=== PATIENT | female | born 1950 | race Caucasian/White ===

== ENCOUNTER → 2018-05-07 | Outpatient (CLI) | payer MEDICARE ==
[~2018-05-07] MED LIST: ASPIR 8181 MG PO; GLIPIZIDE XL10 MG PO; LIPITOR40 MG PO; LISINOPRIL10 MG PO; METFORMIN HCL500 MG PO; NABUMETONE500 MG PO; NORCO 7.5-3251 EACH PO; PROBIOTIC COMP1 EACH PO; VITAMIN D32000 UNI1 PO
--- NOTE | 2018-05-07 09:41 | Diagnostic Imaging Report ---
PROCEDURE:US LIVER COMPARISON:None. INDICATIONS:RUQ LIPOMA PAIN TECHNIQUE: Spicer-scale and color doppler transverse and longitudinal images of the right upper quadrant of the abdomen were obtained. FINDINGS: Liver: 13.1 cm in length and the right midclavicular line. Normal parenchymal echogenicity without focal mass or intrahepatic biliary ductal dilatation. Main portal vein: 0.9 cm in caliber. Hepatopedal flow. Gallbladder: Normal in sonographic appearance without echogenic sludge, shadowing calculus, wall thickening, or pericholecystic fluid. Common Bile Duct: 0.3 cm in caliber. Sonographic Alvarez's sign: Reported as negative. Right kidney: 9.5 cm. Normal renal cortical echogenicity. No solid masses or hydronephrosis. Pancreas: The visualized portions are unremarkable. Inferior vena cava: Patent Aorta: Non-aneurysmal Ascites: None in the right upper quadrant of the abdomen. CONCLUSION: Unremarkable right upper quadrant ultrasound. Dictated by: John Dsos M.D. on 05/07/2018 at 9:51 Electronically approved by: John Doss M.D. on 05/07/2018 at 9:51
--- NOTE | 2018-05-07 09:44 | Diagnostic Imaging Report ---
PROCEDURE: X-RAY CHEST, TWO VIEWS COMPARISON: Report for chest radiograph from May 2016 is available for review. No images are available.. INDICATIONS: PREOPERATIVE CHEST XRAY FOR ORAL SURGERY FINDINGS: The lungs are well-inflated. Mild biapical pleural-parenchymal scar. No airspace consolidation, pleural effusion, or pneumothorax. Cardiomediastinal contour and pulmonary vasculature are within normal limits. Age indeterminate moderate anterior compression deformity of a midthoracic vertebral body seen on the lateral radiograph. Otherwise intact regional skeletal structures. Degenerative disc changes of the partially visualized lumbar spine. CONCLUSION: No acute cardiopulmonary abnormality. Age-indeterminate moderate anterior compression deformity of a midthoracic vertebral body. Point tenderness over this region of the spine would suggest relative acuity. Dictated by: John Doss M.D. on 05/07/2018 at 9:54 Electronically approved by: John Doss M.D. on 05/07/2018 at 9:54
== END ==
LOC: EDBD 09:00 → US 09:04
PROVIDERS: ATTEND Internal Medicine
DX: K76.9 Liver disease, unspecified (principal); R19.01 Right upper quadrant abdominal swelling, mass and lump
CPT/HCPCS: 71046; 76705

== ENCOUNTER → 2020-01-31 | Outpatient (RCR) | payer MEDICARE | LOC: PT 01-10 08:46 | PROVIDERS: ATTEND Specialist | DX: M47.22 Other spondylosis with radiculopathy, cervical region (principal); M62.81 Muscle weakness (generalized) ==

== ENCOUNTER 2020-02-23 08:50 | Outpatient (RCR) | payer MEDICARE ==
[2020-05-02] MEDS ORDERED: JARDIANCE25 MG (12:38)
[2020-05-02] MEDS ORDERED: B12 (12:39)
[2020-05-02] MEDS ORDERED: MELOXICAM7.5 MG PO (12:39)
== END 2020-03-01 ==
LOC: PT 08:50
PROVIDERS: ATTEND Specialist
DX: M47.22 Other spondylosis with radiculopathy, cervical region (principal); M62.81 Muscle weakness (generalized)
CPT/HCPCS: 97139

== ENCOUNTER → 2020-05-05 | Day surgery (SDC) | payer MEDICARE ==
[2020-05-02 13:39] LABS: BASOPHILS % 0.4 % (0.0-1.0); EOSINOPHILS # (AUTO) 0.1 (0.0-0.4); HEMATOCRIT 42.9 % (34.2-44.1); HEMOGLOBIN 13.2 g/dL (12.0-16.0); LYMPHOCYTES # (AUTO) 1.1 (1.0-3.2); LYMPHOCYTES % 16.7 % (18.0-39.1); MEAN CORPUSCULAR HEMOGLOBIN 22.1 pg (28-32); MEAN CORPUSCULAR HGB CONC 30.8 g/dL (31-35); MEAN CORPUSCULAR VOLUME 71.9 fL (81-99); MONOCYTES # (AUTO) 0.4 (0.2-0.8); NEUTROPHILS # (AUTO) 5.1 (2.1-6.9); NEUTROPHILS % 74.8 % (38.7-80.0); PLATELET COUNT 204 x10e3/uL (140-360); RED BLOOD COUNT 5.97 x10e6/uL (3.6-5.1)
[~2020-05-05] MED LIST changes: +B12; +FENTANYL CITRATE/PF 100MCG/2 ML INJ ONE; +HYOSCYAMINE 0.125 MG TAB ONE; +JARDIANCE25 MG; +LIDOCAINE HCL 2% LOCAL INJ 5 ML SDV VIAL INJ ONE; +MELOXICAM7.5 MG PO; +MIDAZOLAM HCL 2 MG/2 ML VIAL ONE; +PROPOFOL IV EMULSION 10 MG/ML 20 ML VIAL ONE
[2020-05-05 18:00] VITALS: BP 111/51
== END | disposition home or self-care (01) ==
LOC: OR 12:43
PROVIDERS: ATTEND Internal Medicine Gastroenterology
DX: Z09 Encounter for follow-up examination after completed treatment for conditions other than malignant neoplasm (principal); K63.5 Polyp of colon; E11.9 Type 2 diabetes mellitus without complications; I10 Essential (primary) hypertension; Z01.810 Encounter for preprocedural cardiovascular examination; Z01.812 Encounter for preprocedural laboratory examination; Z20.828 Contact with and (suspected) exposure to other viral communicable diseases; Z79.82 Long term (current) use of aspirin; Z79.84 Long term (current) use of oral hypoglycemic drugs; Z80.0 Family history of malignant neoplasm of digestive organs
CPT/HCPCS: 36415 ×2; 45385; 82948; 85025; 88305; 93005; J2001; J2250; J2704; J3010; U0002; 45378

== ENCOUNTER 2020-06-28 10:00 | Outpatient (RCR) | payer MEDICARE ==
[~2020-06-28 10:00] MED LIST changes: -FENTANYL CITRATE/PF 100MCG/2 ML INJ ONE; -HYOSCYAMINE 0.125 MG TAB ONE; -LIDOCAINE HCL 2% LOCAL INJ 5 ML SDV VIAL INJ ONE; -MIDAZOLAM HCL 2 MG/2 ML VIAL ONE; -PROPOFOL IV EMULSION 10 MG/ML 20 ML VIAL ONE
== END 2020-07-02 ==
LOC: OT 10:00
PROVIDERS: ATTEND Plastic Surgery
DX: M18.11 Unilateral primary osteoarthritis of first carpometacarpal joint, right hand (principal); M79.641 Pain in right hand

== ENCOUNTER 2021-04-03 09:06 | Outpatient (RCR) | payer MEDICARE | END 2021-05-01 | LOC: OT 09:06 | PROVIDERS: ATTEND Plastic Surgery | DX: M18.12 Unilateral primary osteoarthritis of first carpometacarpal joint, left hand (principal); M25.542 Pain in joints of left hand ==

== ENCOUNTER 2021-07-06 11:04 | Inpatient (IN) | payer MEDICARE ==
[~2021-07-06] VITALS: Ht 154.9 cm; Wt 54.0 kg
[2021-07-06] MEDS ORDERED: SODIUM CHLORIDE 0.9% 1000ML 1,000 ML IV STA ×4 (11:39→20:37)
[2021-07-06] MEDS ORDERED: ONDANSETRON HCL INJ 2MG/ML 2ML 2 MG/ML VIAL IV STA (11:39)
[2021-07-06 11:58] LABS: BASOPHILS # (AUTO) 0.1 (0.0-0.1); BASOPHILS % 0.3 % (0.0-1.0); HEMATOCRIT 54.3 % (34.2-44.1); HEMOGLOBIN 16.4 g/dL (12.0-16.0); LYMPHOCYTES # (AUTO) 1.1 (1.0-3.2); LYMPHOCYTES % 4.7 % (18.0-39.1); MEAN CORPUSCULAR HEMOGLOBIN 23.2 pg (28-32); MEAN CORPUSCULAR HGB CONC 30.2 g/dL (31-35); MEAN CORPUSCULAR VOLUME 76.9 fL (81-99); MONOCYTES # (AUTO) 1.9 (0.2-0.8); MONOCYTES % 8.2 % (4.4-11.3); NEUTROPHILS # (AUTO) 19.4 (2.1-6.9); NEUTROPHILS % 85.8 % (38.7-80.0); PLATELET COUNT 284 x10e3/uL (140-360); RED CELL DISTRIBUTION WIDTH 17.6 % (11.7-14.4)
[2021-07-06 12:04] LABS: RED BLOOD COUNT 7.06 x10e6/uL (3.6-5.1)
[2021-07-06 12:09] LABS: INR 0.86; PROTHROMBIN TIME 12.3 seconds (11.9-14.5)
[2021-07-06 12:10] LABS: PARTIAL THROMBOPLASTIN TIME 22.9 seconds (23.8-35.5)
[2021-07-06 12:17] LABS: ALBUMIN 4.1 g/dL (3.5-5.0); ALBUMIN/GLOBULIN RATIO 1.3 (0.8-2.0); ANION GAP 19.7 mmol/L (8-16); CALCIUM 9.7 mg/dL (8.4-10.2); CREATININE, SERUM 1.27 mg/dL (0.57-1.11); POTASSIUM 4.7 mmol/L (3.5-5.1)
[2021-07-06] MEDS ORDERED: PIPERACILLIN/TAZOBACTAM 3.375 GM in SODIUM CHLORIDE 0.9% 50ML 50 ML IV STA (12:28)
[2021-07-06] MEDS ORDERED: IOPAMIDOL 370 MG/ML 200 ML INFUS..BTL INJ ONE (14:13)
[2021-07-06] MEDS ORDERED: SODIUM CHLORIDE 0.9% 100 ML ONE (14:13)
[2021-07-06] MEDS: METRONIDAZOLE 500MG/NS 100ML 100 ML IV SCH ×2 (15:02→20:45)
[2021-07-06 15:17] LABS: CLARITY,URINE CLEAR (CLEAR); COLOR,URINE YELLOW (YELLOW); KETONES,URINE NEGATIVE (NEGATIVE); LEUKOCYTE ESTERASE ,URINE NEGATIVE (NEGATIVE); NITRITE,URINE NEGATIVE (NEGATIVE); PROTEIN,URINE DIPSTICK NEGATIVE (NEGATIVE); URINE UROBILINOGEN 0.2 mg/dL (0.2 - 1)
[2021-07-06 15:46] LABS: BACTERIA,URINE FEW /HPF; EPITHELIAL CELLS,URINE MANY /LPF; RENAL EPITHELIAL CELLS,URINE FEW; TRANSITIONAL EPI CELLS,URINE FEW
[2021-07-06] MEDS ORDERED: Morphine 2mg Syringe 2 MG/ML SYR IV PRN (16:00)
[2021-07-06] MEDS ORDERED: ONDANSETRON HCL INJ 2MG/ML 2ML 2 MG/ML VIAL IV PRN (16:00)
[2021-07-06] MEDS ORDERED: SODIUM CHLORIDE 0.9% 1000ML 1,000 ML IV SCH (16:00)
[2021-07-06 18:10] VITALS: BP 128/65
[2021-07-06 18:27] VITALS: BP 128/65
[2021-07-06] MEDS ORDERED: DEXTROSE 50% SYRINGE 50 ML IV PRN (18:45)
[2021-07-06 20:00] VITALS: BP 121/66
[2021-07-06 20:31] VITALS: BP 121/66
[2021-07-06] MEDS: PIPERACILLIN/TAZOBACTAM 3.375 GM in SODIUM CHLORIDE 0.9% 50ML 50 ML IV SCH (20:44)
[2021-07-06] MEDS: INSULIN GLARGINE 100 UNITS/ML VIAL SQ SCH (21:00)
[2021-07-06] MEDS: INSULIN LISPRO 100 UNIT/1 ML 3ML VIAL SQ SCH (21:00)
[2021-07-07] VITALS (8 sets, daily range): BP systolic 113–130; BP diastolic 65–76
[2021-07-07] MEDS: PIPERACILLIN/TAZOBACTAM 3.375 GM in SODIUM CHLORIDE 0.9% 50ML 50 ML IV SCH ×4 (02:14→20:01)
[2021-07-07] MEDS: METRONIDAZOLE 500MG/NS 100ML 100 ML IV SCH ×4 (02:14→21:09)
[2021-07-07 07:22] LABS: BASOPHILS % 0.2 % (0.0-1.0); EOSINOPHILS # (AUTO) 0.2 (0.0-0.4); EOSINOPHILS % 1.6 % (0.0-6.0); HEMATOCRIT 35.2 % (34.2-44.1); HEMOGLOBIN 10.7 g/dL (12.0-16.0); LYMPHOCYTES # (AUTO) 1.1 (1.0-3.2); LYMPHOCYTES % 12.4 % (18.0-39.1); MEAN CORPUSCULAR HEMOGLOBIN 22.7 pg (28-32); MEAN CORPUSCULAR HGB CONC 30.4 g/dL (31-35); MEAN CORPUSCULAR VOLUME 74.7 fL (81-99); MONOCYTES # (AUTO) 0.8 (0.2-0.8); MONOCYTES % 8.9 % (4.4-11.3); NEUTROPHILS % 76.6 % (38.7-80.0); PLATELET COUNT 187 x10e3/uL (140-360); RED BLOOD COUNT 4.71 x10e6/uL (3.6-5.1); RED CELL DISTRIBUTION WIDTH 15.8 % (11.7-14.4)
[2021-07-07] MEDS: INSULIN LISPRO 100 UNIT/1 ML 3ML VIAL SQ SCH ×4 (07:30→21:08)
[2021-07-07 08:04] LABS: ALBUMIN 2.7 g/dL (3.5-5.0); ALBUMIN/GLOBULIN RATIO 1.4 (0.8-2.0); ANION GAP 9.7 mmol/L (8-16); CALCIUM 7.8 mg/dL (8.4-10.2); CREATININE, SERUM 0.69 mg/dL (0.57-1.11); POTASSIUM 3.7 mmol/L (3.5-5.1)
[2021-07-07] MEDS: INSULIN GLARGINE 100 UNITS/ML VIAL SQ SCH ×2 (09:12→21:09)
[2021-07-08] VITALS: BP 137/72
[2021-07-08] MEDS: PIPERACILLIN/TAZOBACTAM 3.375 GM in SODIUM CHLORIDE 0.9% 50ML 50 ML IV SCH ×2 (02:01→08:19)
[2021-07-08] MEDS: METRONIDAZOLE 500MG/NS 100ML 100 ML IV SCH ×2 (02:57→09:54)
[2021-07-08 04:00] VITALS: BP 150/79
[2021-07-08 06:33] LABS: BASOPHILS % 0.4 % (0.0-1.0); EOSINOPHILS # (AUTO) 0.2 (0.0-0.4); EOSINOPHILS % 2.7 % (0.0-6.0); HEMATOCRIT 36.3 % (34.2-44.1); LYMPHOCYTES # (AUTO) 1.4 (1.0-3.2); LYMPHOCYTES % 17.8 % (18.0-39.1); MEAN CORPUSCULAR HEMOGLOBIN 22.6 pg (28-32); MEAN CORPUSCULAR HGB CONC 30.3 g/dL (31-35); MEAN CORPUSCULAR VOLUME 74.7 fL (81-99); MONOCYTES # (AUTO) 0.6 (0.2-0.8); NEUTROPHILS # (AUTO) 5.6 (2.1-6.9); NEUTROPHILS % 71.6 % (38.7-80.0); PLATELET COUNT 184 x10e3/uL (140-360); RED BLOOD COUNT 4.86 x10e6/uL (3.6-5.1); RED CELL DISTRIBUTION WIDTH 15.9 % (11.7-14.4)
[2021-07-08 06:53] LABS: ANION GAP 9.7 mmol/L (8-16); CALCIUM 7.9 mg/dL (8.4-10.2); CREATININE, SERUM 0.72 mg/dL (0.57-1.11); POTASSIUM 3.7 mmol/L (3.5-5.1)
[2021-07-08] MEDS: INSULIN LISPRO 100 UNIT/1 ML 3ML VIAL SQ SCH ×2 (07:30→11:30)
[2021-07-08] MEDS: INSULIN GLARGINE 100 UNITS/ML VIAL SQ SCH (08:22)
[2021-07-08 09:58] VITALS: BP 149/72
[2021-07-08 12:21] VITALS: BP 159/84
== END 2021-07-08 14:45 | disposition home or self-care (01) | DRG 872 ==
LOC: ER 11:23 → ERHOLD 15:48 → MED/SURG2 17:34
PROVIDERS: ADMIT Internal Medicine; ATTEND Internal Medicine
DX: A41.9 Sepsis, unspecified organism (principal); N39.0 Urinary tract infection, site not specified; E87.2 Acidosis; K57.92 Diverticulitis of intestine, part unspecified, without perforation or abscess without bleeding; K52.9 Noninfective gastroenteritis and colitis, unspecified; Z96.653 Presence of artificial knee joint, bilateral; E11.9 Type 2 diabetes mellitus without complications; E78.5 Hyperlipidemia, unspecified; I11.9 Hypertensive heart disease without heart failure; N28.9 Disorder of kidney and ureter, unspecified; T38.3X5A Adverse effect of insulin and oral hypoglycemic [antidiabetic] drugs, initial encounter; Z20.822 Contact with and (suspected) exposure to COVID-19
CPT/HCPCS: 36415; 71045; 74174; 80048; 80053; 81001; 82948; 83605; 85025; 85610; 85730; 87040; 87086; 96372; 99284; J1815; J2405; J2543; J7030; J7050; Q9967; U0002

== ENCOUNTER → 2021-07-30 | Outpatient (RCR) | payer MEDICARE | LOC: PT 07-16 12:55 | PROVIDERS: ATTEND Orthopaedic Surgery Sports Medicine | DX: Z98.890 Other specified postprocedural states (principal); M25.561 Pain in right knee; M25.661 Stiffness of right knee, not elsewhere classified; R26.2 Difficulty in walking, not elsewhere classified; R26.9 Unspecified abnormalities of gait and mobility; M62.81 Muscle weakness (generalized) ==

== ENCOUNTER 2021-08-29 09:48 | Outpatient (RCR) | payer MEDICARE | END 2021-08-30 | LOC: PT 09:48 | PROVIDERS: ATTEND Orthopaedic Surgery Sports Medicine | DX: Z98.890 Other specified postprocedural states (principal); M25.561 Pain in right knee; M25.661 Stiffness of right knee, not elsewhere classified; M62.81 Muscle weakness (generalized); R26.9 Unspecified abnormalities of gait and mobility; R26.2 Difficulty in walking, not elsewhere classified | CPT/HCPCS: 97139 ==

== ENCOUNTER 2022-02-28 14:42 | Outpatient (RCR) | payer MEDICARE | END 2022-03-01 | LOC: PT 14:42 | PROVIDERS: ATTEND Orthopaedic Surgery Sports Medicine | DX: M17.0 Bilateral primary osteoarthritis of knee (principal) ==

== ENCOUNTER 2022-03-29 08:00 | Outpatient (RCR) | payer MEDICARE | END 2022-04-01 | LOC: PT 08:00 | PROVIDERS: ATTEND Orthopaedic Surgery Sports Medicine | DX: M17.0 Bilateral primary osteoarthritis of knee (principal) ==

== ENCOUNTER → 2023-04-29 | Outpatient (REF) | payer MEDICARE ==
[~2023-04-29] MED LIST changes: +TRULICITY0.75 MG/0.
== END ==
LOC: RAD 10:14
PROVIDERS: ATTEND Nurse Practitioner
DX: K59.09 Other constipation (principal); R11.0 Nausea
CPT/HCPCS: 74018

== ENCOUNTER → 2023-05-08 | Day surgery (SDC) | payer MEDICARE ==
[2023-05-06 12:15] LABS: ANION GAP 15.4 mmol/L (8-16); CALCIUM 9.7 mg/dL (8.4-10.2); CREATININE, SERUM 1.18 mg/dL (0.57-1.11); POTASSIUM 4.4 mmol/L (3.5-5.1)
[~2023-05-08] MED LIST changes: +BUPIVACAINE HCL 0.5% 10ML MPF VIAL INJ ONE; +FENTANYL CITRATE/PF 100MCG/2 ML INJ ONE; +LACTATED RINGER'S 1,000 ML ONE; +LIDOCAINE 2%/ EPINEPHRINE 20ML MDV ONE; +MIDAZOLAM HCL 2 MG/2 ML VIAL ONE; +MUPIROCIN 2% OINT 22 GM TUBE ONE; +PROPOFOL IV EMULSION 10 MG/ML 20 ML VIAL ONE
[2023-05-08 07:19] VITALS: TEMP 97.9
[2023-05-08 07:45] VITALS: BP 112/63; PULSE 71; RESP 16; O2SAT 100
== END | disposition home or self-care (01) ==
LOC: OR 05:24
PROVIDERS: ATTEND Plastic Surgery
DX: M65.332 Trigger finger, left middle finger (principal); I10 Essential (primary) hypertension; E78.5 Hyperlipidemia, unspecified; E11.9 Type 2 diabetes mellitus without complications; Z79.85 Long-term (current) use of injectable non-insulin antidiabetic drugs; Z79.84 Long term (current) use of oral hypoglycemic drugs; Z01.812 Encounter for preprocedural laboratory examination; Z01.818 Encounter for other preprocedural examination; Z79.899 Other long term (current) drug therapy; Z79.82 Long term (current) use of aspirin
CPT/HCPCS: 26055; 36415 ×2; 71046; 80048; 82948; J0690; J2250; J2704; J3010; J7121; J2001

== ENCOUNTER 2023-06-21 08:30 | Inpatient (IN) | payer MEDICARE ==
[~2023-06-21] VITALS: Ht 154.9 cm; Wt 54.2 kg
[~2023-06-21 08:30] MED LIST changes: +BIOTIN2500 MCG; -BUPIVACAINE HCL 0.5% 10ML MPF VIAL INJ ONE; +CELEBREX200 MG PO; -FENTANYL CITRATE/PF 100MCG/2 ML INJ ONE; -LACTATED RINGER'S 1,000 ML ONE; -LIDOCAINE 2%/ EPINEPHRINE 20ML MDV ONE; -MIDAZOLAM HCL 2 MG/2 ML VIAL ONE; -MUPIROCIN 2% OINT 22 GM TUBE ONE; +OYSTER SHELL 51 EACH PO; -PROPOFOL IV EMULSION 10 MG/ML 20 ML VIAL ONE
[2023-06-21] MEDS ORDERED: CEFTRIAXONE 1 GM VIAL IM ONE (09:30)
[2023-06-21] MEDS ORDERED: CEFTRIAXONE 1 GM VIAL ONE (09:44)
[2023-06-21] MEDS ORDERED: Vancomycin IV 1 GM in SODIUM CHLORIDE 0.9% 250ML 250 ML IV ONE (10:00)
[2023-06-21] MEDS ORDERED: SODIUM CHLORIDE 0.9% 250ML 250 ML ONE (10:05)
[2023-06-21] MEDS ORDERED: Vancomycin IV 1 GM VIAL ONE ×2 (10:05→10:06)
[2023-06-21] MEDS ORDERED: TOUJEO MAX300 UNIT/1 (11:01)
[2023-06-21] MEDS ORDERED: ALENDRONATE SOD70 MG (11:01)
[2023-06-21] MEDS ORDERED: PROTONIX20 MG PO (11:01)
[2023-06-21] MEDS ORDERED: EYLEA2 MG/0.05 (11:01)
[2023-06-21] MEDS ORDERED: PIPERACILLIN/TAZOBACTAM 3.375 GM VIAL ONE (12:04)
[2023-06-21] MEDS ORDERED: KETOROLAC TROMETHAMINE 30 MG/ML VIAL ONE (13:08)
[2023-06-21] MEDS ORDERED: LIDOCAINE HCL 2% LOCAL INJ 5 ML SDV VIAL INJ ONE (13:08)
[2023-06-21] MEDS ORDERED: PROPOFOL IV EMULSION 10 MG/ML 20 ML VIAL ONE (13:08)
[2023-06-21] MEDS ORDERED: ROCURONIUM BROMIDE 10 MG/ML 5ML VIAL IV ONE (13:08)
[2023-06-21] MEDS ORDERED: ONDANSETRON HCL INJ 2MG/ML 2ML 2 MG/ML VIAL ONE (13:08)
[2023-06-21] MEDS ORDERED: SEVOFLURANE INHAL SOLN 250 ML PEN BTL ONE (13:08)
[2023-06-21] MEDS ORDERED: FENTANYL CITRATE/PF 100MCG/2 ML INJ ONE (13:25)
[2023-06-21 13:49] VITALS: BP 154/70; PULSE 67; RESP 18; TEMP 97.7; O2SAT 100
[2023-06-21 14:38] VITALS: BP 154/70; PULSE 67; RESP 18; TEMP 97.7; O2SAT 100
[2023-06-21 16:00] VITALS: BP 152/77; PULSE 64; RESP 17; TEMP 97.8; O2SAT 100
[2023-06-21 20:00] VITALS: BP 148/79; PULSE 72; RESP 18; TEMP 98.1; O2SAT 98
[2023-06-21] MEDS ORDERED: DEXTROSE 50% SYRINGE 50 ML IV PRN (23:45)
[2023-06-21] MEDS ORDERED: INSULIN LISPRO 100 UNIT/1 ML 3ML VIAL SQ ONE (23:45)
[2023-06-22] VITALS (9 sets, daily range): BP systolic 109–162; BP diastolic 57–81; PULSE 60–75; RESP 12–18; TEMP 97–98.3; O2SAT 95–100
[2023-06-22] MEDS ORDERED: MUPIROCIN 2% OINT 22 GM TUBE ONE (06:30)
[2023-06-22] MEDS ORDERED: BUPIVACAINE HCL 0.5% INJ 30 ML VIAL INJ ONE (07:29)
[2023-06-22] MEDS: INSULIN LISPRO 100 UNIT/1 ML 3ML VIAL SQ SCH ×4 (07:30→21:00)
[2023-06-22 08:35] LABS: BASOPHILS % 0.4 % (0.0-1.0); EOSINOPHILS # (AUTO) 0.1 (0.0-0.4); EOSINOPHILS % 1.6 % (0.0-6.0); HEMATOCRIT 36.5 % (34.2-44.1); HEMOGLOBIN 11.1 g/dL (12.0-16.0); LYMPHOCYTES # (AUTO) 1.1 (1.0-3.2); LYMPHOCYTES % 15.2 % (18.0-39.1); MEAN CORPUSCULAR HEMOGLOBIN 22.8 pg (28-32); MEAN CORPUSCULAR HGB CONC 30.4 g/dL (31-35); MEAN CORPUSCULAR VOLUME 74.9 fL (81-99); MONOCYTES # (AUTO) 0.5 (0.2-0.8); MONOCYTES % 7.8 % (4.4-11.3); NEUTROPHILS # (AUTO) 5.2 (2.1-6.9); NEUTROPHILS % 74.9 % (38.7-80.0); PLATELET COUNT 156 x10e3/uL (140-360); RED BLOOD COUNT 4.87 x10e6/uL (3.6-5.1); RED CELL DISTRIBUTION WIDTH 15.7 % (11.7-14.4); WHITE BLOOD COUNT 6.89 x10e3/uL (4.8-10.8)
[2023-06-22 08:53] LABS: ANION GAP 14.1 mmol/L (8-16); CALCIUM 8.6 mg/dL (8.4-10.2); CREATININE, SERUM 0.86 mg/dL (0.57-1.11); POTASSIUM 4.1 mmol/L (3.5-5.1)
[2023-06-23] VITALS: BP 122/74; PULSE 70; RESP 16; TEMP 98.1; O2SAT 96
[2023-06-23 04:00] VITALS: BP 119/49; PULSE 66; RESP 16; TEMP 98.1; O2SAT 94
[2023-06-23 06:03] LABS: BASOPHILS % 0.3 % (0.0-1.0); EOSINOPHILS # (AUTO) 0.2 (0.0-0.4); EOSINOPHILS % 2.5 % (0.0-6.0); HEMATOCRIT 35.3 % (34.2-44.1); HEMOGLOBIN 10.9 g/dL (12.0-16.0); LYMPHOCYTES # (AUTO) 0.9 (1.0-3.2); LYMPHOCYTES % 15.4 % (18.0-39.1); MEAN CORPUSCULAR HEMOGLOBIN 22.7 pg (28-32); MEAN CORPUSCULAR HGB CONC 30.9 g/dL (31-35); MEAN CORPUSCULAR VOLUME 73.4 fL (81-99); MONOCYTES # (AUTO) 0.5 (0.2-0.8); MONOCYTES % 8.6 % (4.4-11.3); NEUTROPHILS # (AUTO) 4.4 (2.1-6.9); NEUTROPHILS % 72.9 % (38.7-80.0); PLATELET COUNT 155 x10e3/uL (140-360); RED BLOOD COUNT 4.81 x10e6/uL (3.6-5.1); RED CELL DISTRIBUTION WIDTH 15.8 % (11.7-14.4); WHITE BLOOD COUNT 6.05 x10e3/uL (4.8-10.8)
[2023-06-23 06:45] LABS: ALBUMIN 2.8 g/dL (3.5-5.0); ANION GAP 12.9 mmol/L (8-16); BILIRUBIN,TOTAL 0.4 mg/dL (0.2-1.2); CALCIUM 8.4 mg/dL (8.4-10.2); CREATININE, SERUM 1.01 mg/dL (0.57-1.11); MAGNESIUM 1.9 MG/DL (1.3-2.1); PHOSPHORUS 3.9 MG/DL (2.3-4.7); POTASSIUM 3.9 mmol/L (3.5-5.1); TOTAL PROTEIN 5.7 g/dL (6.5-8.1)
[2023-06-23 06:52] LABS: FREE T4 (FREE THYROXINE) 1.34 ng/dL (0.8-1.8); THYROID STIMULATING HORMONE 1.541 uIU/mL (0.350-4.940)
[2023-06-23 07:30] VITALS: BP 126/72; PULSE 74; RESP 18; TEMP 97.9; O2SAT 97
[2023-06-23 08:29] VITALS: BP 126/72; PULSE 74; RESP 18; TEMP 97.9; O2SAT 97
[2023-06-23] MEDS ORDERED: SENNA-S TABLET PO PRN (09:30)
[2023-06-23] MEDS ORDERED: METFORMIN HCL 500 MG TAB PO SCH (09:30)
[2023-06-23] MEDS ORDERED: ASPIRIN 81 MG CHEW TAB PO SCH (09:30)
[2023-06-23] MEDS ORDERED: OYST-CAL-D 500MG TABLET PO SCH (09:30)
[2023-06-23] MEDS ORDERED: CHOLECALCIFEROL 1,000 UNIT TAB PO SCH (09:30)
[2023-06-23] MEDS ORDERED: CELECOXIB 200 MG CAP PO SCH (09:30)
[2023-06-23] MEDS ORDERED: PANTOPRAZOLE SOD 40 MG TABEC PO SCH (09:30)
[2023-06-23] MEDS: INSULIN LISPRO 100 UNIT/1 ML 3ML VIAL SQ SCH (09:44)
[2023-06-23] MEDS ORDERED: POLYETHYLENE GLYCOL 3350 17 GM PACK PO SCH (10:00)
[2023-06-23] MEDS ORDERED: DOCUSATE SODIUM 100 MG CAP PO SCH (10:00)
[2023-06-23] MEDS ORDERED: MIRALAX17 GM PO (10:42)
[2023-06-23] MEDS ORDERED: COLACE100 M1 PO (10:42)
[2023-06-23] MEDS ORDERED: LEVOFLOXACIN250 MG PO (10:42)
[2023-06-23] MEDS ORDERED: MUPIROCIN 2% OINT 22 GM TUBE TOP ONE (11:45)
[2023-06-23 12:13] VITALS: BP 158/93; PULSE 81; RESP 18; TEMP 99.2; O2SAT 98
[2023-06-23] MEDS ORDERED: ATORVASTATIN 20 MG TAB PO SCH (21:00)
[2023-06-25] MEDS ORDERED: ALENDRONATE SODIUM 70 MG TAB PO SCH (06:00)
== END 2023-06-23 12:38 | disposition home or self-care (01) | DRG 988 ==
LOC: FSED 08:43 → ERHOLD 09:59 → MED/SURG2 13:18
PROVIDERS: ADMIT Internal Medicine; ATTEND Internal Medicine
PROC: 0L980ZZ Drainage of Left Hand Tendon, Open Approach (ICD-10-PCS; principal; 2023-06-22 06:52)
DX: L03.114 Cellulitis of left upper limb (principal); T81.32XA Disruption of internal operation (surgical) wound, not elsewhere classified, initial encounter; M65.842 Other synovitis and tenosynovitis, left hand; E11.9 Type 2 diabetes mellitus without complications; I10 Essential (primary) hypertension; B95.1 Streptococcus, group B, as the cause of diseases classified elsewhere; I25.10 Atherosclerotic heart disease of native coronary artery without angina pectoris; Y83.8 Other surgical procedures as the cause of abnormal reaction of the patient, or of later complication, without mention of misadventure at the time of the procedure; Z79.899 Other long term (current) drug therapy; Z79.85 Long-term (current) use of injectable non-insulin antidiabetic drugs; Z79.84 Long term (current) use of oral hypoglycemic drugs; Z79.82 Long term (current) use of aspirin; Y92.89 Other specified places as the place of occurrence of the external cause
CPT/HCPCS: 0223U; 36415; 80048; 80053; 82948; 83036; 83735; 84100; 84439; 84443; 85025; 87040; 87071; 87075; 87205; 99252; 99284; J0696; J1885; J2001; J2405; J2543; J7050

== ENCOUNTER 2024-04-14 09:53 | Emergency (ER) | payer MEDICARE ==
[~2024-04-14] VITALS: Ht 154.9 cm; Wt 54.0 kg
[~2024-04-14 09:53] MED LIST changes: +ALENDRONATE SOD70 MG; +COLACE100 M1 PO; +EYLEA2 MG/0.05; +LEVOFLOXACIN250 MG PO; +MIRALAX17 GM PO; +PROTONIX20 MG PO; +TOUJEO MAX300 UNIT/1
[2024-04-14 09:55] VITALS: PULSE 99; RESP 17; TEMP 97.9; O2SAT 100
[2024-04-14] MEDS ORDERED: ONDANSETRON HCL INJ 2MG/ML 2ML 2 MG/ML VIAL IV PRN (10:30)
[2024-04-14] MEDS ORDERED: DICYCLOMINE HCL 20 MG/2 ML VIAL IM ONE (10:30)
[2024-04-14 11:48] LABS: BASOPHILS % 0.4 % (0.0-1.0); EOSINOPHILS # (AUTO) 0.2 (0.0-0.4); EOSINOPHILS % 1.8 % (0.0-6.0); HEMATOCRIT 46.3 % (34.2-44.1); HEMOGLOBIN 14.2 g/dL (12.0-16.0); LYMPHOCYTES # (AUTO) 0.7 (1.0-3.2); LYMPHOCYTES % 6.5 % (18.0-39.1); MEAN CORPUSCULAR HEMOGLOBIN 22.2 pg (28-32); MEAN CORPUSCULAR HGB CONC 30.7 g/dL (31-35); MEAN CORPUSCULAR VOLUME 72.3 fL (81-99); MONOCYTES % 9.9 % (4.4-11.3); NEUTROPHILS # (AUTO) 8.1 (2.1-6.9); NEUTROPHILS % 81.2 % (38.7-80.0); PLATELET COUNT 215 x10e3/uL (140-360); RED CELL DISTRIBUTION WIDTH 16.8 % (11.7-14.4); WHITE BLOOD COUNT 10.02 x10e3/uL (4.8-10.8)
[2024-04-14 12:12] LABS: ALBUMIN 3.5 g/dL (3.5-5.0); ALBUMIN/GLOBULIN RATIO 1.1 (0.8-2.0); ANION GAP 18.2 mmol/L (8-16); BILIRUBIN,TOTAL 1.4 mg/dL (0.2-1.2); CALCIUM 9.7 mg/dL (8.4-10.2); CREATININE, SERUM 1.83 mg/dL (0.57-1.11); POTASSIUM 4.2 mmol/L (3.5-5.1); TOTAL PROTEIN 6.6 g/dL (6.5-8.1)
[2024-04-14] MEDS ORDERED: IOPAMIDOL 370 MG/ML 100 ML INFUS..BTL INJ ONE (12:28)
[2024-04-14] MEDS: SODIUM CHLORIDE 0.9% 1000ML 1,000 ML IV STA (14:09)
[2024-04-14] MEDS ORDERED: CIPRO500 MG PO (14:10)
[2024-04-14] MEDS ORDERED: DICYCLOMINE HCL20 MG PO (14:10)
[2024-04-14] MEDS ORDERED: SODIUM CHLORIDE 0.9% 1000ML 1,000 ML ONE (14:11)
[2024-04-14] MEDS ORDERED: PROMETHAZINE HC25 M1 PO (14:11)
[2024-04-14] MEDS: ONDANSETRON HCL INJ 2MG/ML 2ML 2 MG/ML VIAL IV STA (14:12)
[2024-04-14] MEDS ORDERED: FAMOTIDINE 20 MG/2 ML VIAL IV ONE (14:12)
[2024-04-14 14:18] LABS: BILIRUBIN,URINE 1+ (NEGATIVE); CLARITY,URINE CLOUDY (CLEAR); COLOR,URINE YELLOW (YELLOW); GLUCOSE, URINE 500 (NEGATIVE); KETONES,URINE NEGATIVE (NEGATIVE); LEUKOCYTE ESTERASE ,URINE NEGATIVE (NEGATIVE); NITRITE,URINE NEGATIVE (NEGATIVE); PH,URINE 5.5 (5 - 7); PROTEIN,URINE DIPSTICK 1+ (NEGATIVE); URINE UROBILINOGEN 0.2 mg/dL (0.2 - 1)
[2024-04-14 14:40] LABS: RBC,URINE 21-50 /HPF (0-5)
[2024-04-14 14:41] LABS: BACTERIA,URINE MANY /HPF; EPITHELIAL CELLS,URINE MANY /LPF
[2024-04-14 14:42] LABS: TRANSITIONAL EPI CELLS,URINE FEW
[2024-04-14 14:43] LABS: MUCUS,URINE MODERATE (RARE); RENAL EPITHELIAL CELLS,URINE FEW
== END 2024-04-14 15:16 | disposition home or self-care (01) ==
LOC: ER 10:34
DX: R10.30 Lower abdominal pain, unspecified (principal); K52.9 Noninfective gastroenteritis and colitis, unspecified; N39.0 Urinary tract infection, site not specified; R11.2 Nausea with vomiting, unspecified; E11.65 Type 2 diabetes mellitus with hyperglycemia; I10 Essential (primary) hypertension; E78.5 Hyperlipidemia, unspecified; K21.9 Gastro-esophageal reflux disease without esophagitis; M85.88 Other specified disorders of bone density and structure, other site; I25.2 Old myocardial infarction
CPT/HCPCS: 36415; 74176; 80053; 81001; 83690; 85025; 87086; 87186; 99284; J2405; J2470; J7030; Q9967

== ENCOUNTER → 2024-05-05 | Outpatient (REF) | payer MEDICARE ==
[~2024-05-05] MED LIST changes: +CIPRO500 MG PO; +DICYCLOMINE HCL20 MG PO; +PROMETHAZINE HC25 M1 PO
== END ==
LOC: MRI 10:56
PROVIDERS: ATTEND Internal Medicine
DX: H53.2 Diplopia (principal)
CPT/HCPCS: 70551